=== PATIENT | female | born 1985 | race Caucasian/White ===

== ENCOUNTER 2018-10-20 19:12 | Emergency (ER) | payer OTHER ==
[~2018-10-20] VITALS: Ht 165.1 cm; Wt 57.0 kg
[~2018-10-20 19:12] MED LIST: TRAM50TA2 PO
[2018-10-20 19:35] VITALS: Ht 165.1 cm; Wt 57.0 kg
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
[2018-10-20] MEDS ORDERED: KETOROLAC 30 MG INJ IM STA (23:13)
[2018-10-20] MEDS ORDERED: HYDROCODONE/APAP (5/325) TAB PO ONE (23:30)
[2018-10-21] MEDS ORDERED: IBUP-1542 PO (00:19)
[2018-10-21] MEDS ORDERED: CYCL10TA7 PO (00:19)
[2018-10-21] MEDS ORDERED: TRAM50TA2 PO (00:20)
[2018-10-21] MEDS ORDERED: DOCU-144 PO (00:20)
[2018-10-21 00:40] VITALS: BP 128/82; PULSE 66; RESP 18
== END 2018-10-21 00:40 | disposition home or self-care (01) ==
LOC: FTE 19:12
DX: S30.0XXA Contusion of lower back and pelvis, initial encounter (principal); K59.00 Constipation, unspecified; N20.0 Calculus of kidney; R07.9 Chest pain, unspecified; S10.93XA Contusion of unspecified part of neck, initial encounter; V49.50XA Passenger injured in collision with unspecified motor vehicles in traffic accident, initial encounter
CPT/HCPCS: 71046; 72040; 74176; 81001; 81025; 96372; J1885; Z7502; Z7610